=== PATIENT | female | born 2000 | race Caucasian/White ===

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

== ENCOUNTER 2021-10-28 09:48 | Outpatient (CLI) | payer OTHER ==
--- NOTE | 2021-10-28 11:54 | Ultrasound Report ---
PROCEDURE: OB First Trimester INDICATIONS: SUPERVISION OF NORMAL OUTSIDE/PRIOR DATING DATA: Last menstrual period (LMP): 07/29/2021 LMP-based estimated date of delivery (JHONY): 05/05/2022. First dating scan (date and location): 10/28/2021. Estimated date of delivery (JHONY) from first dating scan: 05/05/2022. The below data below was generated using the ultrasound derived JHONY of 05/05/2022 TECHNIQUE: Real-time scanning was performed of the fetus and maternal pelvic organs, with image documentation. COMPARISON: None. FINDINGS: Embryo: Porters Neck-rump length 6.7 cm. Heart rate: 157 bpm Measurement variability in dating: +/- 4 weeks by LMP, +/- 7 days by mean sac diameter (use before 6 weeks gestation if crown-rump length not able to be measured), +/- 5 days by crown-rump length (6-12 weeks gestation). Maternal organs: Ovaries normal. IMPRESSION: Single live intrauterine gestation with estimated ultrasound age of 13 weeks 0 days. Reviewed by: Kavin Rodriguez MD on 10/28/2021 11:53 AM PDT Approved by: Kavin Rodriguez MD on 10/28/2021 11:53 AM PDT Station ID: [id number]
== END 2021-10-28 09:49 | disposition home or self-care (01) ==
LOC: DI 09:48
PROVIDERS: ATTEND Obstetrics & Gynecology
DX: Z34.81 Encounter for supervision of other normal pregnancy, first trimester (principal); Z3A.13 13 weeks gestation of pregnancy